=== PATIENT | male | born 1935 | race Caucasian/White ===

== ENCOUNTER 2018-09-08 01:12 | Inpatient (IN) ==
[2018-09-08] MEDS ORDERED: ACETAMINOPHEN 325 MG TABLET PO PRN (01:54)
[2018-09-08] MEDS ORDERED: ONDANSETRON 4 MG/2 ML VIAL IV PRN (01:54)
[2018-09-08] MEDS: MORPHINE 4 MG/1 ML VIAL IV PRN (02:44)
[2018-09-08 04:20] LABS: Basophils # 0.1 10*3/uL (0.0-0.2); Basophils % 0.3 % (0.0-0.8); Eosinophils # 0.2 10*3/uL (0.0-0.87); Eosinophils % 1.1 % (0.00-10.9); Hematocrit 33.2 VOL% (42.0-52.0); Hemoglobin 10.5 GM/DL (14.0-18.0); Immature Granulocytes % 0.5 %; Immature Granulocytes Absolute 0.07 #; Mean Corpuscular HGB Conc 31.6 GM/DL (32-36); Mean Corpuscular Hemoglobin 29 PG (27-34); Mean Platelet Volume 9.6 FL (9.6-12.0); Monocytes # 1.2 10*3/uL (0.11-0.8); Monocytes % 7.7 % (1.7-12.7); Neutrophils # 10.6 10*3/uL (1.4-7.4); Neutrophils % 70.4 % (38.7-73.9); Platelet Count 255 T/CUMM (130-400); Red Blood Count 3.69 MC/CUMM (3.8-5.5); Red Cell Distribution Width 14.3 % (9.3-17.3); White Blood Count 15.1 T/CUMM (4-12)
[2018-09-08] MEDS ORDERED: PANTOPRAZOLE 40 MG TABLET PO SCH (09:00)
[2018-09-08] MEDS ORDERED: NITROGLYCERIN SL 0.4 MG TABLET SL PRN (17:24)
[2018-09-08] MEDS: MULTIVITAMIN (OCUVITE) TABLET PO SCH (21:50)
[2018-09-08] MEDS: PHENAZOPYRIDINE 95 MG TABLET PO SCH (21:50)
[2018-09-08] MEDS: ISOSORBIDE MONONITRATE 20 MG TABLET PO SCH (21:50)
[2018-09-08] MEDS: ATORVASTATIN 40 MG TABLET PO SCH (21:51)
[2018-09-08] MEDS: CYCLOBENZAPRINE 10 MG TABLET PO PRN (21:54)
[2018-09-09] MEDS: MORPHINE 4 MG/1 ML VIAL IV PRN (01:32)
[2018-09-09] MEDS: ONDANSETRON 4 MG/2 ML VIAL IV PRN (01:40)
[2018-09-09] MEDS: PHENAZOPYRIDINE 95 MG TABLET PO SCH ×3 (10:04→21:37)
[2018-09-09] MEDS: MULTIVITAMIN (CENTRUM) TABLET PO SCH (10:04)
[2018-09-09] MEDS: ISOSORBIDE MONONITRATE 20 MG TABLET PO SCH ×2 (10:04→21:37)
[2018-09-09] MEDS: MULTIVITAMIN (OCUVITE) TABLET PO SCH ×2 (10:04→21:38)
[2018-09-09] MEDS: PANTOPRAZOLE 40 MG TABLET PO SCH (10:04)
[2018-09-09] MEDS: METOPROLOL SUCCINATE XL 25 MG TABLET PO SCH (16:38)
[2018-09-09] MEDS: amLODIPine 5 MG TABLET PO SCH (16:38)
[2018-09-09] MEDS: CYCLOBENZAPRINE 10 MG TABLET PO PRN (21:38)
[2018-09-09] MEDS: ATORVASTATIN 40 MG TABLET PO SCH (21:38)
[2018-09-10] MEDS ORDERED: LIDOCAINE 2% TOP JELLY 20 ML VIAL INTRAURETH ONE ×2 (00:01→02:28)
[2018-09-10] MEDS: ONDANSETRON 4 MG/2 ML VIAL IV PRN (00:20)
[2018-09-10] MEDS: MORPHINE 4 MG/1 ML VIAL IV PRN ×3 (00:20→07:28)
[2018-09-10 05:31] LABS: Basophils % 0.2 % (0.0-0.8); Eosinophils # 0.2 10*3/uL (0.0-0.87); Hematocrit 29.9 VOL% (42.0-52.0); Immature Granulocytes % 0.6 %; Immature Granulocytes Absolute 0.07 #; Lymphocytes # 2.5 10*3/uL (1.4-4.0); Lymphocytes % 21.7 % (21.2-54.2); Mean Corpuscular HGB Conc 30.1 GM/DL (32-36); Mean Corpuscular Hemoglobin 28 PG (27-34); Mean Corpuscular Volume 93.4 FL (87-102); Mean Platelet Volume 9.9 FL (9.6-12.0); Monocytes # 0.9 10*3/uL (0.11-0.8); Monocytes % 7.6 % (1.7-12.7); Neutrophils # 7.8 10*3/uL (1.4-7.4); Neutrophils % 67.9 % (38.7-73.9); Platelet Count 234 T/CUMM (130-400); Red Cell Distribution Width 14.5 % (9.3-17.3); White Blood Count 11.4 T/CUMM (4-12)
[2018-09-10] MEDS: MULTIVITAMIN (OCUVITE) TABLET PO SCH ×2 (08:30→20:46)
[2018-09-10] MEDS: MULTIVITAMIN (CENTRUM) TABLET PO SCH (08:30)
[2018-09-10] MEDS: PHENAZOPYRIDINE 95 MG TABLET PO SCH ×3 (08:30→20:46)
[2018-09-10] MEDS: METOPROLOL SUCCINATE XL 25 MG TABLET PO SCH (08:30)
[2018-09-10] MEDS: ISOSORBIDE MONONITRATE 20 MG TABLET PO SCH ×2 (08:30→20:46)
[2018-09-10] MEDS: amLODIPine 5 MG TABLET PO SCH (08:30)
[2018-09-10] MEDS: PANTOPRAZOLE 40 MG TABLET PO SCH (08:30)
[2018-09-10] MEDS ORDERED: POLYETHYLENE GLYCOL POWDER 17 GM PACK PO SCH (09:00)
[2018-09-10] MEDS: DUTASTERIDE 0.5 MG CAPSULE PO SCH (13:06)
[2018-09-10 13:38] LABS: PT Patient Result 10.7 SECS; Partial Thromboplastin Time 26.8 SECS (0-40)
[2018-09-10] MEDS: MULTIVITAMIN (INTRINSIC) CAPSULE PO SCH (18:27)
[2018-09-10] MEDS: ATORVASTATIN 40 MG TABLET PO SCH (20:46)
[2018-09-11] MEDS: CYCLOBENZAPRINE 10 MG TABLET PO PRN (03:06)
[2018-09-11] MEDS: PANTOPRAZOLE 40 MG TABLET PO SCH ×2 (07:52→09:56)
[2018-09-11] MEDS: METOPROLOL SUCCINATE XL 25 MG TABLET PO SCH ×2 (07:52→09:56)
[2018-09-11] MEDS: ISOSORBIDE MONONITRATE 20 MG TABLET PO SCH ×3 (07:52→21:09)
[2018-09-11] MEDS: MULTIVITAMIN (INTRINSIC) CAPSULE PO SCH ×3 (07:52→18:16)
[2018-09-11] MEDS: DUTASTERIDE 0.5 MG CAPSULE PO SCH ×2 (07:52→09:56)
[2018-09-11] MEDS: PHENAZOPYRIDINE 95 MG TABLET PO SCH ×4 (07:52→21:09)
[2018-09-11] MEDS: MULTIVITAMIN (OCUVITE) TABLET PO SCH ×3 (07:52→21:10)
[2018-09-11] MEDS: amLODIPine 5 MG TABLET PO SCH ×2 (07:53→09:56)
[2018-09-11] MEDS: MAGNESIUM HYDROXIDE SUSP 30 ML UDCUP PO PRN (13:35)
[2018-09-11] MEDS: POLYETHYLENE GLYCOL POWDER 17 GM PACK PO SCH (13:36)
[2018-09-11] MEDS: ATORVASTATIN 40 MG TABLET PO SCH (21:10)
[2018-09-11] MEDS: MORPHINE 4 MG/1 ML VIAL IV PRN (21:14)
[2018-09-11] MEDS: ONDANSETRON 4 MG/2 ML VIAL IV PRN (21:18)
[2018-09-12] MEDS: MORPHINE 4 MG/1 ML VIAL IV PRN (00:50)
[2018-09-12] MEDS: ONDANSETRON 4 MG/2 ML VIAL IV PRN (00:54)
[2018-09-12] MEDS: amLODIPine 5 MG TABLET PO SCH ×2 (07:51→08:10)
[2018-09-12] MEDS: MULTIVITAMIN (INTRINSIC) CAPSULE PO SCH ×3 (07:51→17:41)
[2018-09-12] MEDS: ISOSORBIDE MONONITRATE 20 MG TABLET PO SCH ×3 (07:51→22:21)
[2018-09-12] MEDS: PHENAZOPYRIDINE 95 MG TABLET PO SCH ×4 (07:51→22:21)
[2018-09-12] MEDS: MULTIVITAMIN (OCUVITE) TABLET PO SCH ×3 (07:51→22:20)
[2018-09-12] MEDS: POLYETHYLENE GLYCOL POWDER 17 GM PACK PO SCH ×2 (07:51→08:10)
[2018-09-12] MEDS: DUTASTERIDE 0.5 MG CAPSULE PO SCH ×2 (07:51→08:10)
[2018-09-12] MEDS: MAGNESIUM HYDROXIDE SUSP 30 ML UDCUP PO PRN (07:51)
[2018-09-12] MEDS: PANTOPRAZOLE 40 MG TABLET PO SCH ×2 (07:51→08:10)
[2018-09-12] MEDS: METOPROLOL SUCCINATE XL 25 MG TABLET PO SCH ×2 (07:51→08:11)
[2018-09-12] MEDS: BISACODYL 10 MG SUPP RECTAL SCH (14:11)
[2018-09-12] MEDS: ATORVASTATIN 40 MG TABLET PO SCH (22:20)
[2018-09-13] MEDS: PHENAZOPYRIDINE 95 MG TABLET PO SCH (09:13)
[2018-09-13] MEDS: MULTIVITAMIN (INTRINSIC) CAPSULE PO SCH (09:13)
[2018-09-13] MEDS: DUTASTERIDE 0.5 MG CAPSULE PO SCH (09:13)
[2018-09-13] MEDS: PANTOPRAZOLE 40 MG TABLET PO SCH (09:13)
[2018-09-13] MEDS: ISOSORBIDE MONONITRATE 20 MG TABLET PO SCH (09:13)
[2018-09-13] MEDS: METOPROLOL SUCCINATE XL 25 MG TABLET PO SCH (09:13)
[2018-09-13] MEDS: amLODIPine 5 MG TABLET PO SCH (09:13)
[2018-09-13] MEDS: POLYETHYLENE GLYCOL POWDER 17 GM PACK PO SCH (09:14)
[2018-09-13] MEDS: MULTIVITAMIN (OCUVITE) TABLET PO SCH (09:14)
[2018-09-13] MEDS: BISACODYL 10 MG SUPP RECTAL SCH (09:14)
[2018-09-13 11:04] VITALS: BP 110/55
== END 2018-09-13 13:23 | disposition home health service (06) | DRG 813 ==
LOC: EDBD → EDUNIT# → N.ED 01:12 → N.EDINP 01:54 → N.5E 15:20
PROVIDERS: ADMIT Urology; ATTEND Urology

== ENCOUNTER 2022-02-07 16:13 | Inpatient (IN) ==
[2022-02-07] MEDS ORDERED: GLUCAGON 1 MG VIAL IM PRN (18:50)
[2022-02-07] MEDS ORDERED: MIDODRINE 5 MG TABLET PO SCH (19:00)
[2022-02-07] MEDS ORDERED: DEXTROSE 10% 250 ML BAG IV PRN (19:04)
[2022-02-07 19:22] LABS: Basophils % 0.2 % (0.0-0.8); Hematocrit 28.3 VOL% (42.0-52.0); Hemoglobin 8.8 GM/DL (14.0-18.0); Immature Granulocytes % 0.9 %; Immature Granulocytes Absolute 0.16 #; Lymphocytes # 1.4 10*3/uL (1.4-4.0); Lymphocytes % 7.6 % (21.2-54.2); Mean Corpuscular HGB Conc 31.1 GM/DL (32-36); Mean Corpuscular Volume 87.1 FL (87-102); Mean Platelet Volume 9.5 FL (9.6-12.0); Monocytes # 1.1 10*3/uL (0.11-0.8); Monocytes % 5.6 % (1.7-12.7); Neutrophils % 85.7 % (38.7-73.9); Platelet Count 314 T/CUMM (130-400); Red Blood Count 3.25 MC/CUMM (3.8-5.5); Red Cell Distribution Width 15.8 % (9.3-17.3); White Blood Count 18.7 T/CUMM (4-12)
[2022-02-07] MEDS ORDERED: MIDODRINE 5 MG TABLET PO ONE (19:35)
[2022-02-07 19:57] LABS: Bilirubin,Total 0.7 MG/DL (0.20-1.00); Calcium 8.6 MG/DL (8.5-10.1); Osmolality,Calculated 274.8 MOS/KG (273-304); Potassium 4.6 MMOL/L (3.5-5.1); Thyroid Stimulating Hormone 2.11 uIU/ml (0.358-3.74)
[2022-02-07] MEDS: ALBUTEROL/IPRATROPIUM 3 ML NEB RESP TX SCH (20:05)
[2022-02-07] MEDS: ENOXAPARIN 40 MG/0.4 ML SYRINGE SUBCUT SCH (20:37)
[2022-02-07] MEDS: ROSUVASTATIN 20 MG TABLET PO SCH (20:37)
[2022-02-07] MEDS: CLOPIDOGREL 75 MG TABLET PO SCH (20:38)
[2022-02-07] MEDS: ASPIRIN EC 81 MG TABLET PO SCH (20:38)
[2022-02-07 20:53] LABS: Bacteria,Urine Occasional /HPF (Few); Mucus,Urine Occasional /LPF (Occasional); Protein,Urine 100 mg/dL (Negative); RBC,Urine 1248 /HPF (0-4); Urine Appearance Slightly Cloudy (Clear); Urine Color Yellow (Yellow); Urine pH 5.5 (4.5-8.0)
[2022-02-07 20:54] LABS: Bilirubin,Urine Negative (Negative); Blood, Urine Large mg/dL (Negative); Glucose,Urine (UA) Negative (Negative); Ketones,Urine Trace mg/dL (Negative); Nitrite,Urine Positive (Negative)
[2022-02-07] MEDS: cefTRIAXone 2,000 MG in SODIUM CHLORIDE 0.9% 100 ML IV SCH (22:33)
[2022-02-08] MEDS: ALBUTEROL/IPRATROPIUM 3 ML NEB RESP TX SCH ×4 (00:45→19:00)
[2022-02-08 05:49] LABS: Basophils % 0.3 % (0.0-0.8); Eosinophils % 0.2 % (0.00-10.9); Hematocrit 27.3 VOL% (42.0-52.0); Hemoglobin 8.6 GM/DL (14.0-18.0); Immature Granulocytes % 0.8 %; Immature Granulocytes Absolute 0.11 #; Lymphocytes # 1.2 10*3/uL (1.4-4.0); Lymphocytes % 8.1 % (21.2-54.2); Mean Corpuscular HGB Conc 31.5 GM/DL (32-36); Mean Corpuscular Volume 86.7 FL (87-102); Mean Platelet Volume 9.5 FL (9.6-12.0); Monocytes # 0.9 10*3/uL (0.11-0.8); Monocytes % 6.4 % (1.7-12.7); Neutrophils % 84.2 % (38.7-73.9); Platelet Count 300 T/CUMM (130-400); Red Blood Count 3.15 MC/CUMM (3.8-5.5); Red Cell Distribution Width 15.9 % (9.3-17.3); White Blood Count 14.6 T/CUMM (4-12)
[2022-02-08] MEDS: LEVOTHYROXINE 75 MCG TABLET PO SCH (06:02)
[2022-02-08 06:14] LABS: Alanine Aminotransferase 57 U/L (16-61); Alkaline Phosphatase 91 U/L (45-117); Aspartate Amino Transferase 30 U/L (0-37); Bilirubin,Total < 0.39 MG/DL (0.20-1.00); Blood Urea Nitrogen 15 MG/DL (7-18); Calcium 8.4 MG/DL (8.5-10.1); Carbon Dioxide 25 MMOL/L (21-32); Chloride 106 MMOL/L (98-107); Cholesterol 54 MG/DL (50-200); Glucose 95 MG/DL (74-106); HDL Cholesterol 17 MG/DL (40-60); Osmolality,Calculated 273.8 MOS/KG (273-304); Risk Ratio 3.18; Sodium 137 MMOL/L (136-145); Total Protein 5.6 G/DL (6.4-8.2); Triglycerides 79 MG/DL (2-150); VLDL Cholesterol 15.8 MG/DL
[2022-02-08] MEDS ORDERED: FUROSEMIDE 20 MG/2 ML VIAL IV SCH (09:00)
[2022-02-08] MEDS: PANTOPRAZOLE 40 MG TABLET PO SCH (09:46)
[2022-02-08] MEDS: EZETIMIBE 10 MG TABLET PO SCH (09:46)
[2022-02-08] MEDS: METOPROLOL TARTRATE 25 MG TABLET PO SCH ×2 (09:46→20:49)
[2022-02-08] MEDS: AZITHROMYCIN INJ 500 MG in SODIUM CHLORIDE 0.9% 250 ML IV SCH (09:47)
[2022-02-08] MEDS: cefTRIAXone 2,000 MG in SODIUM CHLORIDE 0.9% 100 ML IV SCH (20:25)
[2022-02-08] MEDS: ENOXAPARIN 40 MG/0.4 ML SYRINGE SUBCUT SCH (20:48)
[2022-02-08] MEDS: ASPIRIN EC 81 MG TABLET PO SCH (20:49)
[2022-02-08] MEDS: ROSUVASTATIN 20 MG TABLET PO SCH (20:49)
[2022-02-08] MEDS: CLOPIDOGREL 75 MG TABLET PO SCH (20:50)
[2022-02-08] MEDS: FUROSEMIDE 20 MG/2 ML VIAL IV SCH (21:22)
[2022-02-09] MEDS: ALBUTEROL/IPRATROPIUM 3 ML NEB RESP TX SCH ×4 (00:14→19:40)
[2022-02-09 05:28] LABS: Basophils % 0.2 % (0.0-0.8); Eosinophils # 0.1 10*3/uL (0.0-0.87); Eosinophils % 0.5 % (0.00-10.9); Hematocrit 29.4 VOL% (42.0-52.0); Immature Granulocytes % 0.7 %; Immature Granulocytes Absolute 0.09 #; Lymphocytes # 1.4 10*3/uL (1.4-4.0); Lymphocytes % 10.2 % (21.2-54.2); Mean Corpuscular HGB Conc 30.6 GM/DL (32-36); Mean Platelet Volume 9.8 FL (9.6-12.0); Monocytes # 1.1 10*3/uL (0.11-0.8); Monocytes % 7.8 % (1.7-12.7); Neutrophils % 80.6 % (38.7-73.9); Platelet Count 315 T/CUMM (130-400); Red Blood Count 3.34 MC/CUMM (3.8-5.5); Red Cell Distribution Width 15.8 % (9.3-17.3); White Blood Count 13.4 T/CUMM (4-12)
[2022-02-09] MEDS: LEVOTHYROXINE 75 MCG TABLET PO SCH (05:54)
[2022-02-09 06:02] LABS: Calcium 8.8 MG/DL (8.5-10.1); Osmolality,Calculated 276.5 MOS/KG (273-304); Potassium 4.2 MMOL/L (3.5-5.1)
[2022-02-09] MEDS: FUROSEMIDE 20 MG/2 ML VIAL IV SCH ×2 (10:00→17:32)
[2022-02-09] MEDS: METOPROLOL TARTRATE 25 MG TABLET PO SCH (10:01)
[2022-02-09] MEDS: AZITHROMYCIN INJ 500 MG in SODIUM CHLORIDE 0.9% 250 ML IV SCH (10:01)
[2022-02-09] MEDS: EZETIMIBE 10 MG TABLET PO SCH (10:01)
[2022-02-09] MEDS: PANTOPRAZOLE 40 MG TABLET PO SCH (10:01)
[2022-02-09] MEDS: ROSUVASTATIN 20 MG TABLET PO SCH (21:21)
[2022-02-09] MEDS: CLOPIDOGREL 75 MG TABLET PO SCH (21:21)
[2022-02-09] MEDS: ENOXAPARIN 40 MG/0.4 ML SYRINGE SUBCUT SCH (21:21)
[2022-02-09] MEDS: ASPIRIN EC 81 MG TABLET PO SCH (21:22)
[2022-02-09] MEDS: cefTRIAXone 2,000 MG in SODIUM CHLORIDE 0.9% 100 ML IV SCH (22:02)
[2022-02-10] MEDS: ALBUTEROL/IPRATROPIUM 3 ML NEB RESP TX SCH ×4 (01:00→19:31)
[2022-02-10] MEDS: FUROSEMIDE 20 MG/2 ML VIAL IV SCH ×3 (01:57→17:51)
[2022-02-10] MEDS: HYDROmorphone 1 MG/1 ML SYRINGE IV PRN ×2 (01:58→05:28)
[2022-02-10] MEDS: ONDANSETRON 4 MG/2 ML VIAL IV PRN (02:02)
[2022-02-10] MEDS: LEVOTHYROXINE 75 MCG TABLET PO SCH (05:55)
[2022-02-10 06:50] LABS: Basophils % 0.3 % (0.0-0.8); Eosinophils # 0.1 10*3/uL (0.0-0.87); Eosinophils % 0.8 % (0.00-10.9); Hematocrit 28.5 VOL% (42.0-52.0); Hemoglobin 8.8 GM/DL (14.0-18.0); Immature Granulocytes % 0.5 %; Immature Granulocytes Absolute 0.06 #; Lymphocytes # 1.8 10*3/uL (1.4-4.0); Lymphocytes % 13.3 % (21.2-54.2); Mean Corpuscular HGB Conc 30.9 GM/DL (32-36); Mean Corpuscular Volume 87.7 FL (87-102); Mean Platelet Volume 9.8 FL (9.6-12.0); Monocytes % 7.7 % (1.7-12.7); Neutrophils % 77.4 % (38.7-73.9); Platelet Count 302 T/CUMM (130-400); Red Blood Count 3.25 MC/CUMM (3.8-5.5); Red Cell Distribution Width 15.7 % (9.3-17.3); White Blood Count 13.2 T/CUMM (4-12)
[2022-02-10 07:33] LABS: Calcium 8.5 MG/DL (8.5-10.1); Osmolality,Calculated 279.3 MOS/KG (273-304); Potassium 3.5 MMOL/L (3.5-5.1)
[2022-02-10] MEDS ORDERED: AMIODARONE 200 MG TABLET PO SCH (09:00)
[2022-02-10] MEDS ORDERED: METOPROLOL SUCCINATE XL 50 MG TABLET PO SCH (09:00)
[2022-02-10] MEDS: PANTOPRAZOLE 40 MG TABLET PO SCH (11:10)
[2022-02-10] MEDS: METOPROLOL SUCCINATE XL 25 MG TABLET PO SCH (11:10)
[2022-02-10] MEDS: EZETIMIBE 10 MG TABLET PO SCH (11:10)
[2022-02-10] MEDS: AZITHROMYCIN INJ 500 MG in SODIUM CHLORIDE 0.9% 250 ML IV SCH (11:12)
[2022-02-10] MEDS: cefTRIAXone 2,000 MG in SODIUM CHLORIDE 0.9% 100 ML IV SCH (21:48)
[2022-02-10] MEDS: ASPIRIN EC 81 MG TABLET PO SCH (21:49)
[2022-02-10] MEDS: ROSUVASTATIN 20 MG TABLET PO SCH (21:49)
[2022-02-10] MEDS: ENOXAPARIN 40 MG/0.4 ML SYRINGE SUBCUT SCH (21:49)
[2022-02-10] MEDS: CLOPIDOGREL 75 MG TABLET PO SCH (21:50)
[2022-02-11] MEDS: ALBUTEROL/IPRATROPIUM 3 ML NEB RESP TX SCH ×4 (00:37→18:50)
[2022-02-11] MEDS: FUROSEMIDE 20 MG/2 ML VIAL IV SCH ×3 (01:14→18:53)
[2022-02-11] MEDS: HYDROmorphone 1 MG/1 ML SYRINGE IV PRN (04:31)
[2022-02-11 05:29] LABS: Basophils % 0.2 % (0.0-0.8); Eosinophils # 0.2 10*3/uL (0.0-0.87); Eosinophils % 1.1 % (0.00-10.9); Hemoglobin 9.2 GM/DL (14.0-18.0); Immature Granulocytes % 0.5 %; Immature Granulocytes Absolute 0.06 #; Lymphocytes # 1.3 10*3/uL (1.4-4.0); Lymphocytes % 9.8 % (21.2-54.2); Mean Corpuscular HGB Conc 30.7 GM/DL (32-36); Mean Corpuscular Volume 88.2 FL (87-102); Mean Platelet Volume 9.7 FL (9.6-12.0); Monocytes % 7.3 % (1.7-12.7); Neutrophils % 81.1 % (38.7-73.9); Platelet Count 322 T/CUMM (130-400); Red Cell Distribution Width 15.5 % (9.3-17.3); White Blood Count 13.2 T/CUMM (4-12)
[2022-02-11 05:56] LABS: Albumin 1.9 G/DL (3.4-5.0); Bilirubin,Total 0.4 MG/DL (0.20-1.00); Calcium 8.5 MG/DL (8.5-10.1); Osmolality,Calculated 275.5 MOS/KG (273-304); Potassium 3.5 MMOL/L (3.5-5.1); Total Protein 5.9 G/DL (6.4-8.2)
[2022-02-11] MEDS: LEVOTHYROXINE 75 MCG TABLET PO SCH (06:12)
[2022-02-11] MEDS: PANTOPRAZOLE 40 MG TABLET PO SCH (09:28)
[2022-02-11] MEDS: EZETIMIBE 10 MG TABLET PO SCH (09:28)
[2022-02-11] MEDS: METOPROLOL SUCCINATE XL 25 MG TABLET PO SCH (09:28)
[2022-02-11] MEDS: AZITHROMYCIN INJ 500 MG in SODIUM CHLORIDE 0.9% 250 ML IV SCH (11:37)
[2022-02-11] MEDS: cefTRIAXone 2,000 MG in SODIUM CHLORIDE 0.9% 100 ML IV SCH (20:48)
[2022-02-11] MEDS: ASPIRIN EC 81 MG TABLET PO SCH (20:48)
[2022-02-11] MEDS: CLOPIDOGREL 75 MG TABLET PO SCH (20:48)
[2022-02-11] MEDS: ENOXAPARIN 40 MG/0.4 ML SYRINGE SUBCUT SCH (20:48)
[2022-02-11] MEDS: ROSUVASTATIN 20 MG TABLET PO SCH (20:50)
[2022-02-12] MEDS: ALBUTEROL/IPRATROPIUM 3 ML NEB RESP TX SCH ×4 (00:16→19:15)
[2022-02-12] MEDS: FUROSEMIDE 20 MG/2 ML VIAL IV SCH ×3 (02:26→18:31)
[2022-02-12] MEDS: HYDROmorphone 1 MG/1 ML SYRINGE IV PRN (02:33)
[2022-02-12 05:18] LABS: Basophils % 0.3 % (0.0-0.8); Eosinophils # 0.3 10*3/uL (0.0-0.87); Eosinophils % 2.3 % (0.00-10.9); Hematocrit 30.8 VOL% (42.0-52.0); Hemoglobin 9.4 GM/DL (14.0-18.0); Immature Granulocytes % 0.6 %; Immature Granulocytes Absolute 0.07 #; Lymphocytes # 1.5 10*3/uL (1.4-4.0); Lymphocytes % 13.6 % (21.2-54.2); Mean Corpuscular HGB Conc 30.5 GM/DL (32-36); Mean Corpuscular Volume 88.3 FL (87-102); Mean Platelet Volume 9.7 FL (9.6-12.0); Monocytes # 0.8 10*3/uL (0.11-0.8); Monocytes % 7.3 % (1.7-12.7); Neutrophils % 75.9 % (38.7-73.9); Platelet Count 349 T/CUMM (130-400); Red Blood Count 3.49 MC/CUMM (3.8-5.5); Red Cell Distribution Width 15.7 % (9.3-17.3)
[2022-02-12 05:37] LABS: Alanine Aminotransferase 101 U/L (16-61); Alkaline Phosphatase 109 U/L (45-117); Aspartate Amino Transferase 88 U/L (0-37); Bilirubin,Total < 0.39 MG/DL (0.20-1.00); Blood Urea Nitrogen 10 MG/DL (7-18); Calcium 8.6 MG/DL (8.5-10.1); Carbon Dioxide 31 MMOL/L (21-32); Chloride 102 MMOL/L (98-107); Glucose 92 MG/DL (74-106); Osmolality,Calculated 275.5 MOS/KG (273-304); Potassium 3.7 MMOL/L (3.5-5.1); Sodium 139 MMOL/L (136-145)
[2022-02-12] MEDS ORDERED: POTASSIUM CHLORIDE 20 MEQ TABLET PO ONE (05:41)
[2022-02-12] MEDS ORDERED: METOPROLOL TARTRATE 5 MG/5 ML VIAL IV ONE (05:54)
[2022-02-12] MEDS: LEVOTHYROXINE 75 MCG TABLET PO SCH (06:10)
[2022-02-12] MEDS ORDERED: ENOXAPARIN 80 MG/0.8 ML SYRINGE SUBCUT ONE (06:42)
[2022-02-12] MEDS: PANTOPRAZOLE 40 MG TABLET PO SCH (08:35)
[2022-02-12] MEDS: DAPAGLIFLOZIN 10 MG TABLET PO SCH (08:35)
[2022-02-12] MEDS: METOPROLOL SUCCINATE XL 25 MG TABLET PO SCH (08:35)
[2022-02-12] MEDS: EZETIMIBE 10 MG TABLET PO SCH (08:35)
[2022-02-12] MEDS: SACUBITRIL/VALSARTAN 49-51 MG TABLET PO SCH ×2 (08:35→21:36)
[2022-02-12] MEDS ORDERED: AMIODARONE INJ 150 MG in DEXTROSE 5% 100 ML IV ONE (09:46)
[2022-02-12] MEDS ORDERED: AMIODARONE INJ 450 MG in DEXTROSE 5% 241 ML IV SCH (10:00)
[2022-02-12] MEDS: AZITHROMYCIN INJ 500 MG in SODIUM CHLORIDE 0.9% 250 ML IV SCH (10:43)
[2022-02-12] MEDS: cefTRIAXone 2,000 MG in SODIUM CHLORIDE 0.9% 100 ML IV SCH (21:35)
[2022-02-12] MEDS: ROSUVASTATIN 20 MG TABLET PO SCH (21:37)
[2022-02-12] MEDS: APIXABAN 5 MG TABLET PO SCH (21:37)
[2022-02-12] MEDS: CLOPIDOGREL 75 MG TABLET PO SCH (21:37)
[2022-02-12] MEDS: AMIODARONE INJ 450 MG in DEXTROSE 5% 241 ML IV SCH (22:21)
[2022-02-13] MEDS: ALBUTEROL/IPRATROPIUM 3 ML NEB RESP TX SCH ×2 (00:25→07:05)
[2022-02-13] MEDS: FUROSEMIDE 20 MG/2 ML VIAL IV SCH (01:39)
[2022-02-13] MEDS: HYDROmorphone 1 MG/1 ML SYRINGE IV PRN (04:12)
[2022-02-13] MEDS: ONDANSETRON 4 MG/2 ML VIAL IV PRN (04:15)
[2022-02-13 04:51] LABS: Basophils % 0.3 % (0.0-0.8); Eosinophils # 0.1 10*3/uL (0.0-0.87); Eosinophils % 1.2 % (0.00-10.9); Hematocrit 31.3 VOL% (42.0-52.0); Hemoglobin 9.5 GM/DL (14.0-18.0); Immature Granulocytes % 0.4 %; Immature Granulocytes Absolute 0.05 #; Lymphocytes # 1.5 10*3/uL (1.4-4.0); Lymphocytes % 12.5 % (21.2-54.2); Mean Corpuscular HGB Conc 30.4 GM/DL (32-36); Mean Corpuscular Volume 87.7 FL (87-102); Mean Platelet Volume 9.7 FL (9.6-12.0); Monocytes # 0.9 10*3/uL (0.11-0.8); Monocytes % 7.1 % (1.7-12.7); Neutrophils % 78.5 % (38.7-73.9); Platelet Count 345 T/CUMM (130-400); Red Blood Count 3.57 MC/CUMM (3.8-5.5); Red Cell Distribution Width 15.8 % (9.3-17.3)
[2022-02-13 05:14] LABS: Albumin 2.1 G/DL (3.4-5.0); Bilirubin,Total 0.5 MG/DL (0.20-1.00); Calcium 8.7 MG/DL (8.5-10.1); Osmolality,Calculated 279.3 MOS/KG (273-304); Potassium 3.6 MMOL/L (3.5-5.1); Total Protein 6.2 G/DL (6.4-8.2)
[2022-02-13] MEDS: LEVOTHYROXINE 75 MCG TABLET PO SCH (05:57)
[2022-02-13] MEDS ORDERED: AMIODARONE 200 MG TABLET PO SCH (09:00)
[2022-02-13] MEDS ORDERED: FUROSEMIDE 40 MG TABLET PO SCH (09:00)
[2022-02-13] MEDS: APIXABAN 5 MG TABLET PO SCH (09:58)
[2022-02-13] MEDS: PANTOPRAZOLE 40 MG TABLET PO SCH (09:58)
[2022-02-13] MEDS: METOPROLOL SUCCINATE XL 25 MG TABLET PO SCH (09:58)
[2022-02-13] MEDS: SACUBITRIL/VALSARTAN 49-51 MG TABLET PO SCH (09:58)
[2022-02-13] MEDS: EZETIMIBE 10 MG TABLET PO SCH (09:59)
[2022-02-13] MEDS: DAPAGLIFLOZIN 10 MG TABLET PO SCH (09:59)
[2022-02-13] MEDS: AZITHROMYCIN INJ 500 MG in SODIUM CHLORIDE 0.9% 250 ML IV SCH (09:59)
[2022-02-13] MEDS: AMIODARONE INJ 450 MG in DEXTROSE 5% 241 ML IV SCH (10:04)
[2022-02-13 12:13] VITALS: BP 94/47
== END 2022-02-13 13:32 | disposition swing bed (61) | DRG 871 ==
LOC: SUATTDRO 17:49 → N.TELES 17:49
PROVIDERS: ADMIT Internal Medicine; ATTEND Family Medicine